=== PATIENT | male | born 2000 | race Two or more races ===

== ENCOUNTER 2019-10-10 15:34 | Emergency (ER) | payer OTHER ==
[~2019-10-10] VITALS: Ht 167.6 cm; Wt 63.5 kg
[2019-10-10 16:18] VITALS: BP 112/60
== END 2019-10-10 17:12 | disposition home or self-care (01) ==
LOC: ER 15:34
DX: S61.259A Open bite of unspecified finger without damage to nail, initial encounter (principal); W54.0XXA Bitten by dog, initial encounter; Y93.89 Activity, other specified; Y92.89 Other specified places as the place of occurrence of the external cause; Y99.8 Other external cause status